=== PATIENT | female | born 1980 | race African-American/Black ===

== ENCOUNTER 2019-12-22 22:03 | Emergency (ER) | payer BC ==
--- NOTE | 2019-12-22 22:52 | EDM.PDOC ---
ED HPI GENERAL MEDICAL PROBLEM - General Chief Complaint: Headache Stated Complaint: HEADACHE Time Seen by Provider: 12/22/19 22:38 Source of Information: Reports: Patient, Family () History Limitations: Reports: No Limitations - History of Present Illness INITIAL COMMENTS - FREE TEXT/NARRATIVE: Mrs. Christensen is a very pleasant 39-year-old woman with a past medical history significant for bipolar affective disorder, who now presents to the ED stating that she developed a headache felt behind both of her eyes 2 days ago, Wednesday , 12/20/2019. It is throbbing in character. She also reports 4 to 5 days of rhinorrhea, 2 days of a nonproductive cough and fatigue, fever of 100.4 degrees today, along with nausea. Her oral intake has been normal. She has been taking [id number] Tylenol, with her most recent dose at 17:00. Here in the ED, the patient is found to be hemodynamically stable, afebrile, saturating 98% on room air. The patient not have a PCP. Her Psychiatrist is in [place], [place]. She did not receive an influenza vaccine this season, and declined an offer to receive one here today. Treatments [employer]: Reports: Other (see below) Other Treatments [employer]: tylenol Headache Pain Score (Numeric/FACES): 9 - Related Data Allergies Allergy/AdvReac Type Severity Reaction Status Date / Time No Known Allergies Allergy Verified 12/22/19 22:18 Home Meds: Home Meds QUEtiapine Fumarate [Seroquel] 300 mg PO BEDTIME 12/22/19 [History] Past Medical History Psychiatric History: Reports: Bipolar - Past Surgical History Female Surgical History: Reports: Section (x 5), Tubal Ligation Social & Family History - Tobacco Use Smoking Status *Q: Former Smoker Years of Tobacco use: 6 Packs/Tins Daily: 0.2 Month/Year Tobacco Last Used: Quit 2015 - Caffeine Use Caffeine Use: Reports: Coffee - Alcohol Use Alcohol Use History: No - Recreational Drug Use Recreational Drug Use: Yes Drug Use in Last 12 Months: No Recreational Drug Type: Reports: Marijuana/Hashish (last smoked in her 20s) - Living Situation & Occupation Living situation: Reports: , with Spouse 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 ED EXAM, GENERAL - Physical Exam Exam: See Below Exam Limited By: No Limitations General Appearance: Alert, WD/WN, No Apparent Distress Eye Exam: Bilateral Eye: EOMI, PERRL Ears: Normal External Exam, Normal Canal, Hearing Grossly Normal, Normal TMs Nose: No Blood, Other (Bilateral nasal mucosa edema) Throat/Mouth: Normal Inspection, Normal Lips, Normal Teeth, Normal Gums, Normal Oropharynx, Normal Voice, No Airway Compromise Head: Atraumatic, Normocephalic. No: Sinus Tenderness Neck: Normal Inspection, Supple, Non-Tender, Full Range of Motion. No: Lymphadenopathy (L), Lymphadenopathy (R) Respiratory/Chest: No Respiratory Distress, Lungs Clear, Normal Breath Sounds, No Accessory Muscle Use. No: Decreased Breath Sounds, Crackles, Rhonchi, Wheezing, Stridor, Prolonged Expiration Cardiovascular: Normal Peripheral Pulses, Regular Rate, Rhythm, No Edema, No Gallop, No JVD, No Murmur, No Rub Peripheral Pulses: 4+: Radial (L), Radial (R) GI/Abdominal: Normal Bowel Sounds, Soft, Non-Tender, No Organomegaly, No Distention, No Abnormal Bruit, No Mass (Female) Exam: Deferred Rectal (Female) Exam: Deferred Back Exam: Normal Inspection, Full Range of Motion, NT Extremities: Normal Inspection, Normal Range of Motion, No Pedal Edema, Normal Capillary Refill Neurological: Alert, Oriented, Normal Cognition, No Motor/Sensory Deficits Psychiatric: Normal Affect Skin Exam: Warm, Dry, Intact, Normal Color, No Rash Course - Vital Signs Last Recorded V/S: Last Vital Signs Temp 36.7 C 12/22/19 22:14 Pulse 83 12/22/19 22:14 Resp 20 12/22/19 22:14 BP 119/67 12/22/19 22:14 Pulse Ox 98 12/22/19 22:14 - Orders/Labs/Meds Orders: Active Orders 24 hr Category Date Time Status Chest 2V [CR] Stat Exams 12/22/19 22:49 Taken Isolation [COMM] Routine Oth 12/22/19 22:49 Ordered - Re-Assessments/Exams Free Text/Narrative Re-Assessment/Exam: 12/22/19 22:50 The patient is likely suffering from a viral URI with cough, and nasal congestion is likely the cause of her headache. It is possible that she is suffering from influenza. For today's purposes, I have ordered an influenza swab, along with a chest x-ray. Provided that her chest x-ray does not show an infiltrate, blood work is not necessary, however, if the patient's chest x-ray does show an infiltrate, then we will need blood work. 12/22/19 23:07 Two-view chest radiograph appears to be grossly normal. The cardiac silhouette is within normal limits. No pulmonary vascular congestion. No pleural effusions. No focal infiltrate. No pneumothorax. Formal read per the Radiologist pending. 12/22/19 23:34 The patient's influenza swab returned negative. 12/22/19 23:37 Test results discussed with the patient and her . As above, the patient is likely suffering from a viral URI. Questions answered. Departure - Departure Time of Disposition: 23:38 Disposition: Home, Self-Care 01 Condition: Good Clinical Impression: Viral URI with cough - Discharge Information *PRESCRIPTION DRUG MONITORING PROGRAM REVIEWED*: Not Applicable *COPY OF PRESCRIPTION DRUG MONITORING REPORT IN PATIENT JAMSHID: Not Applicable Instructions: Upper Respiratory Infection, Adult, [id number] Referrals: PCP,None [Primary Care Provider] - Forms: ED Department Discharge Additional Instructions: You were seen in the emergency room for a runny nose, headache, cough, fatigue, and fever and nausea today. Work-up in the ER included an influenza swab and a chest x-ray, both of which returned normal. You do not have pneumonia, and it is unlikely that you have influenza. Based on your history, physical exam, and ER tests, you are most likely suffering from a viral URI, also known as a common cold. Unfortunately, there are no medicines to treat a common cold - it will have to run its course, which typically takes about 12 days, with the worst of the symptoms in the first 5 to 7 days, then tapering thereafter. As discussed, we recommend against [id number] cough or cold remedies, as they have been shown to be of no benefit, but do have side effects, such as an upset stomach. You may take [id number] Tylenol or ibuprofen as needed for discomfort. Stay adequately hydrated. You may safely return to work when you are no longer symptomatic. If any other problems, please do not hesitate to return to the ER. Sepsis Event Note - Evaluation Sepsis Screening Result: No Definite Risk - Focused Exam Date Exam was Performed: 12/23/19 Time Exam was Performed: 22:19 - My Orders Last 24 Hours: My Active Orders 12/22/19 22:49 Chest 2V [CR] Stat Isolation [COMM] Routine - Assessment/Plan Last 24 Hours: My Active Orders 12/22/19 22:49 Chest 2V [CR] Stat Isolation [COMM] Routine
--- NOTE | 2019-12-25 07:48 | CR ---
Chest: 2 views of the chest were obtained. Comparison: No prior chest imaging is available. Heart size and mediastinum are normal. Lungs are clear with no acute parenchymal change. Bony structures are unremarkable. Impression: 1. Nothing acute is appreciated on 2 view chest x-ray. Diagnostic code #1 This report was dictated in MDT
== END 2019-12-22 23:50 | disposition home or self-care (01) ==
LOC: JD.ED 22:03
DX: J06.9 Acute upper respiratory infection, unspecified (principal); Z87.891 Personal history of nicotine dependence
CPT/HCPCS: 71046; 71046-26; 87804; 99282; 99284-25